=== PATIENT | female | born 1990 | race American Indian/Alaskan Native ===

== ENCOUNTER 2019-03-13 20:32 | Emergency (ER) | payer SELFPAY ==
[2019-03-13] MEDS ORDERED: ULTRAM PO ONE (23:23)
--- NOTE | 2019-03-13 23:27 | Emergency Department Report ---
- General Chief Complaint: Wound/Laceration Stated Complaint: HAND LAC Time Seen by Provider: 03/13/19 23:20 Source: patient Mode of arrival: Ambulatory Limitations: No Limitations - History of Present Illness Initial Comments: Patient is a 29-year-old female who cut her right hand washing dishes tonight states she cut it on a ceramic cup there is mild bleeding con trolled by direct pressure applied home range of motion reminds intact there is no nerve tendon or muscle damage laceration is superficial Onset/Timin -: hour(s) Extremity Location: Right: Hand (at dorsal 5th metacarpal ) Place: home Patient Tetanus UTD: Yes Context: accidental Associated Symptoms: pain - Related Data Previous Rx's Medication Instructions Recorded Last Taken Type traMADol [Ultram] 50 mg PO Q6HR PRN #12 tablet 03/13/19 Unknown Rx Allergies Allergy/AdvReac Type Severity Reaction Status Date / Time No Known Allergies Allergy Verified 03/13/19 20:35 ED Review of Systems ROS: Stated complaint: HAND LAC Other details as noted in HPI Constitutional: denies: chills, fever Eyes: denies: eye pain, eye discharge, vision change ENT: as per HPI Respiratory: denies: cough, shortness of breath, wheezing Cardiovascular: denies: chest pain, palpitations Endocrine: no symptoms reported Gastrointestinal: denies: abdominal pain, nausea, diarrhea Genitourinary: denies: urgency, dysuria, discharge Musculoskeletal: denies: back pain, joint swelling, arthralgia, myalgia Skin: other (laceration right hand ). denies: rash, lesions Neurological: denies: headache, weakness, paresthesias Psychiatric: denies: anxiety, depression Hematological/Lymphatic: denies: easy bleeding, easy bruising ED Past Medical Hx - Past Medical History Previous Medical History?: No - Surgical History Past Surgical History?: Yes Additional Surgical History: gall stone removal, breast reduction - Social History Smoking Status: Never Smoker Substance Use Type: Alcohol, Marijuana - Medications Home Medications: Home Medications Medication Instructions Recorded Confirmed Last Taken Type traMADol [Ultram] 50 mg PO Q6HR PRN #12 tablet 03/13/19 Unknown Rx ED Physical Exam - General Limitations: No Limitations General appearance: alert, in no apparent distress - Head Head exam: Present: atraumatic, normocephalic - Eye Eye exam: Present: normal appearance, PERRL, EOMI - ENT ENT exam: Present: mucous membranes moist - Neck Neck exam: Present: normal inspection - Respiratory Respiratory exam: Present: normal lung sounds bilaterally. Absent: respiratory distress, wheezes, stridor, chest wall tenderness - Cardiovascular Cardiovascular Exam: Present: regular rate, normal rhythm, normal heart sounds. Absent: systolic murmur, diastolic murmur, rubs, gallop - GI/Abdominal GI/Abdominal exam: Present: soft, normal bowel sounds. Absent: distended, tenderness, bruit, hernia - Rectal Rectal exam: Present: deferred - Extremities Exam Extremities exam: Present: normal inspection, full ROM, tenderness (right hand laceration ), normal capillary refill - Expanded Upper Extremity Exam Right Hand Wrist exam: Present: full ROM, tenderness, laceration (1 cm lac right dorsal hand at 5th metacarpal no nerve tendon or muscle damage ). Absent: swelling, abrasion, ecchymosis, deformity, crepidus, dislocation, erythema, amputation, nail avulsion, subungual hematoma Neuro motor exam: Present: wrist extension intact, thumb opposition intact, thumb IP flexion intact, thumb adduction intact, fingers 2-5 abduction intact Neurosensory exam: Present: 2-point discrimination, radial nerve intact, ulnar nerve intact, median nerve intact Vascular: Present: normal capillary refill, radial pulse, brachial pulse, ulnar pulse. Absent: pulse deficit radial art, pulse deficit ulnar art, pulse deficit brachial art - Back Exam Back exam: Present: normal inspection, full ROM, tenderness, muscle spasm. Absent: CVA tenderness (R), CVA tenderness (L), paraspinal tenderness, vertebral tenderness, rash noted - Neurological Exam Neurological exam: Present: alert, oriented X3, CN II-XII intact, normal gait, reflexes normal. Absent: motor sensory deficit - Psychiatric Psychiatric exam: Present: normal affect, normal mood - Skin Skin exam: Present: warm, dry, intact, normal color. Absent: rash ED Course Vital Signs 03/13/19 03/13/19 20:35 20:36 Temperature 98.1 F 98.1 F Pulse Rate 72 81 Respiratory 18 16 Rate Blood Pressure 105/58 105/58 O2 Sat by Pulse 98 99 Oximetry - I & D Right Dorsal Hand Type of Procedure: Simple Site: right dorasal hand laceration - Laceration /Wound Repair Right Dorsal Hand Wound Location: upper extremity Wound Length (cm): 1 Wound's Depth, Shape: superficial Wound Explored: clean Irrigated w/ Saline (ccs): 20 Betadine Prep?: Yes Anesthesia: 1% Lidocaine Volume Anesthetic (ccs): 1 Wound Debrided: minimal Wound Repaired With: sutures Suture Size/Type: 4:0, proline (5) Number of Sutures: 5 Layer Closure?: No Sterile Dressing Applied?: Yes Progress: right dorsal hand laceration cleaned with betadine solution anesthesia with 1% lidocaine 1 cc, wound explored and irrigated wtih 20 cc sterile saline closed with 3.0 prolene x 5 sutures running all bleeding is controlled pt tolerated procedure with minimal distress pt given wound care instructions no nerve muscle or tendon involvment all bleeding is controlled. ED Medical Decision Making - Medical Decision Making right hand laceration see procedure note, cms intact pt given wound care instructions pt verbalized agreement and understanding of same. Critical care attestation.: If time is entered above; I have spent that time in minutes in the direct care of this critically ill patient, excluding procedure time. ED Disposition Clinical Impression: Laceration of hand Qualifiers: Encounter type: initial encounter Foreign body presence: without foreign body Laterality: right Qualified Code(s): S61.411A - Laceration without foreign body of right hand, initial encounter Disposition: TO HOME OR SELFCARE Is pt being admited?: No Does the pt Need Aspirin: No Condition: Stable Instructions: Laceration (ED) Prescriptions: traMADol [Ultram] 50 mg PO Q6HR PRN #12 tablet PRN Reason: Pain Referrals: TANA ENG MD [Primary Care Provider] - 3-5 Days Forms: Work/School Release Form(ED) Time of Disposition: 23:37
[2019-03-13 23:54] VITALS: BP 108/67
== END 2019-03-13 23:55 | disposition home or self-care (01) ==
LOC: ED 20:32
DX: S61.411A Laceration without foreign body of right hand, initial encounter (principal); F12.10 Cannabis abuse, uncomplicated; Z79.899 Other long term (current) drug therapy; Z98.890 Other specified postprocedural states; W25.XXXA Contact with sharp glass, initial encounter; Y93.G1 Activity, food preparation and clean up; Y92.89 Other specified places as the place of occurrence of the external cause; Y99.8 Other external cause status
CPT/HCPCS: 99282